=== PATIENT | male | born 1945 | race Caucasian/White ===

== ENCOUNTER 2021-10-03 18:18 | Inpatient (IN) | payer MEDICARE, BC ==
[2021-10-03] MEDS ORDERED: Acetaminophen 650 MG Suppository PR PRN (21:05)
[2021-10-03] MEDS ORDERED: HumaLOG 300 UNITS/3 ML VIAL SC PRN ×2 (21:05)
[2021-10-03] MEDS ORDERED: Ondansetron ODT 4 MG TAB PO PRN (21:05)
[2021-10-03] MEDS ORDERED: Dextrose 50% Abboject 50 ML SYRINGE SLOW IVP PRN (21:05)
[2021-10-03] MEDS ORDERED: Dextrose 5% in Water 1,000 ML IV PRN (21:05)
[2021-10-03] MEDS ORDERED: Ondansetron PF 4 MG/2 ML Vial IVP PRN (21:05)
[2021-10-03] MEDS ORDERED: Acetaminophen 325 MG TAB PO PRN (21:05)
[2021-10-03] MEDS ORDERED: Nitroglycerin 0.4 MG TAB (25 Tab Bottle) SL PRN (21:20)
[2021-10-03 21:21] VITALS: BMI 30.9
[2021-10-04 05:10] LABS: #Eosinphils 0.3 thou/uL (0.0-0.7); #Lymphocytes 1.6 thou/uL (1.20-3.40); #Monocytes 0.8 thou/uL (0.11-0.59); #Neutrophils 3.2 thou/uL (1.40-6.50); %Basophils 0.6 % (0.0-1.0); %Eosinophils 4.4 % (0.0-10.0); %Lymphocytes 27.6 % (21.0-51.0); %Monocytes 13.5 % (0.0-10.0); %Neutrophils 53.9 % (42.0-75.0); Mean Corpuscular HGB CONC 32.9 g/dL (32.0-36.0); Mean Corpuscular Hemoglobin 31.6 pg (27.0-31.0); Mean Corpuscular Volume 95.9 fL (78.0-98.0); Mean Platelet Volume 7.9 fL (7.4-10.4); Platelet Count 191 thou/uL (130-400); RBC Distribution Width 11.8 % (11.5-14.5); Red Blood Cell (RBC) Count 4.76 mill/uL (4.70-6.10); White Blood Cell (WBC) Count 5.8 thou/uL (4.8-10.8)
[2021-10-04 05:24] LABS: Anion Gap 13 mmol/L (10-20); BUN (Urea Nitrogen) 21 mg/dL (8.4-25.7); Calc. Creatinine Clearance 95 mL/min (70-130); Calcium 8.9 mg/dL (7.8-10.44); Carbon Dioxide 27 mmol/L (23-31); Chloride 106 mmol/L (98-107); Estimated GFR 83; Glucose 200 mg/dL (83-110); Potassium 4.5 mmol/L (3.5-5.1); Sodium 141 mmol/L (136-145)
[2021-10-04] MEDS: Losartan 25 MG TAB PO SCH ×3 (07:33→12:18)
[2021-10-04] MEDS ORDERED: ADENOSINE 60 MG/20 ML VIAL ONE (09:05)
[2021-10-04] MEDS ORDERED: HumaLOG 300 UNITS/3 ML VIAL SC PRN ×2 (12:47→17:09)
[2021-10-04] MEDS ORDERED: Insulin Glargine 30 UNITS/0.3 ML VIAL SC SCH ×2 (17:15→21:00)
[2021-10-04] MEDS: Amlodipine 5 MG TAB PO SCH (19:55)
[2021-10-04] MEDS: Atorvastatin Calcium 10 MG TAB PO SCH (19:56)
[2021-10-05 04:45] LABS: #Basophils 0.1 thou/uL (0.0-0.2); #Eosinphils 0.3 thou/uL (0.0-0.7); #Lymphocytes 1.6 thou/uL (1.20-3.40); #Monocytes 0.7 thou/uL (0.11-0.59); #Neutrophils 3.5 thou/uL (1.40-6.50); %Eosinophils 4.2 % (0.0-10.0); %Lymphocytes 25.6 % (21.0-51.0); %Monocytes 11.9 % (0.0-10.0); %Neutrophils 57.3 % (42.0-75.0); Hemoglobin 14.3 g/dL (14.0-18.0); Mean Corpuscular HGB CONC 32.5 g/dL (32.0-36.0); Mean Corpuscular Hemoglobin 30.7 pg (27.0-31.0); Mean Corpuscular Volume 94.5 fL (78.0-98.0); Mean Platelet Volume 7.9 fL (7.4-10.4); Platelet Count 198 thou/uL (130-400); RBC Distribution Width 11.9 % (11.5-14.5); Red Blood Cell (RBC) Count 4.67 mill/uL (4.70-6.10); White Blood Cell (WBC) Count 6.1 thou/uL (4.8-10.8)
[2021-10-05 05:11] LABS: Anion Gap 13 mmol/L (10-20); BUN (Urea Nitrogen) 19 mg/dL (8.4-25.7); Calc. Creatinine Clearance 111 mL/min (70-130); Calcium 8.9 mg/dL (7.8-10.44); Carbon Dioxide 26 mmol/L (23-31); Chloride 104 mmol/L (98-107); Estimated GFR 93; Glucose 132 mg/dL (83-110); Potassium 4.1 mmol/L (3.5-5.1); Sodium 139 mmol/L (136-145)
[2021-10-05] MEDS ORDERED: Sodium Chloride 0.9% 1,000 ML IV SCH ×2 (06:30→09:15)
[2021-10-05] MEDS ORDERED: Communication Order-Pharmacy FS SCH (06:30)
[2021-10-05] MEDS: Losartan 25 MG TAB PO SCH ×2 (06:31→06:42)
[2021-10-05] MEDS: Aspirin 81 mg Enteric Coated Tablet PO SCH ×2 (06:31→06:42)
[2021-10-05] MEDS ORDERED: Lidocaine 1% MPF 2 ML VIAL ONE (07:15)
[2021-10-05] MEDS ORDERED: Midazolam HCl 2 mg/2 ml Vial ONE (07:59)
[2021-10-05] MEDS ORDERED: Fentanyl 100 MCG/2 ML VIAL ONE (07:59)
[2021-10-05] MEDS ORDERED: Iopamidol 370 76% 100 ML VIAL ONE (09:00)
[2021-10-05] MEDS ORDERED: Sodium Chloride 0.9% 200 ML IV PRN (09:10)
[2021-10-05] MEDS ORDERED: Acetaminophen/Codeine 30-300mg Tablet PO PRN ×2 (09:10)
[2021-10-05] MEDS ORDERED: Nitroglycerin 0.4 MG TAB (25 Tab Bottle) SL PRN (09:10)
[2021-10-05] MEDS ORDERED: HumaLOG 300 UNITS/3 ML VIAL SC PRN (12:00)
[2021-10-05 15:53] VITALS: TEMP 97.9
[2021-10-05 19:21] VITALS: BP 130/74
[2021-10-05] MEDS: Atorvastatin Calcium 10 MG TAB PO SCH (20:19)
[2021-10-05] MEDS: Amlodipine 5 MG TAB PO SCH (20:19)
== END 2021-10-05 22:47 | disposition short-term general hospital (02) | DRG 287 ==
LOC: 2SW 19:30 → OBSVTOIN 10-04 16:09
PROVIDERS: ADMIT Internal Medicine; ATTEND Internal Medicine
PROC: B2111ZZ Fluoroscopy of Multiple Coronary Arteries using Low Osmolar Contrast (ICD-10-PCS; principal; 2021-10-05)
DX: I25.119 Atherosclerotic heart disease of native coronary artery with unspecified angina pectoris (principal); E78.5 Hyperlipidemia, unspecified; Z20.822 Contact with and (suspected) exposure to COVID-19; N18.2 Chronic kidney disease, stage 2 (mild); I12.9 Hypertensive chronic kidney disease with stage 1 through stage 4 chronic kidney disease, or unspecified chronic kidney disease; I35.0 Nonrheumatic aortic (valve) stenosis; E11.22 Type 2 diabetes mellitus with diabetic chronic kidney disease; K80.20 Calculus of gallbladder without cholecystitis without obstruction; Z88.1 Allergy status to other antibiotic agents; Z88.0 Allergy status to penicillin; Z79.4 Long term (current) use of insulin; Z79.899 Other long term (current) drug therapy; Z90.49 Acquired absence of other specified parts of digestive tract; Z79.84 Long term (current) use of oral hypoglycemic drugs
CPT/HCPCS: 36415; 36416; 78452; 80048; 85025; 93017; 93306; 93454; 94760; 99152; 99153; A9500; C1769; C1894; J0153; J1815; J2250; J3010; J7050; Q9967; U0003; U0005